=== PATIENT | male | born 1950 | race Caucasian/White ===

== ENCOUNTER 2022-07-04 19:38 | Inpatient (IN) | payer OTHER, MEDICARE ==
[~2022-07-04] VITALS: Ht 162.6 cm; Wt 95.3 kg
[2022-07-04 20:01] VITALS: BP_SYST 129
--- NOTE | 2022-07-04 20:32 | NUR ---
Pt brought by , A&Oxappropiate to age, pt presents to ER with weakness, diaphoresis,cough and congestion, skin pink and warm, cap refill <3,will cont to monitor
[2022-07-04 21:06] LABS: BASOPHILS % (AUTO) 0.3 % (0.0-2.0); EOSINOPHILS % (AUTO) 0.1 % (0.0-4.0); HEMATOCRIT 26.4 % (36-54); LYMPHOCYTES # (AUTO) 0.4 K/uL (1.0-5.5); LYMPHOCYTES % (AUTO) 2.9 % (20.5-51.5); MEAN CORPUSCULAR HEMOGLOBIN 32 pg (27-31); MEAN CORPUSCULAR HGB CONC 34 % (32-36); MEAN CORPUSCULAR VOLUME 94 fL (79.0-98.0); MONOCYTES # (AUTO) 0.7 K/uL (0.0-1.0); MONOCYTES % (AUTO) 4.6 % (1.7-9.3); NEUTROPHILS # (AUTO) 13.9 K/uL (1.8-7.7); NEUTROPHILS % (AUTO) 92.1 % (40.0-70.0); PLATELET COUNT (AUTO) 267 K/uL (130-430); RED BLOOD CELL COUNT(AUTO) 2.82 MIL/uL (4.2-6.2); WHITE BLOOD COUNT (AUTO) 15.1 K/uL (4.8-10.8)
--- NOTE | 2022-07-04 21:19 | NUR ---
Report given to Bryon VILLAR
[2022-07-04 21:35] LABS: BILIRUBIN,URINE NEGATIVE (NEGATIVE); BLOOD, URINE 1+ (NEGATIVE); CLARITY/URINE CLOUDY (CLEAR); COLOR,URINE YELLOW (YELLOW); GLUCOSE,URINE NEGATIVE (NEGATIVE); KETONES,URINE NEGATIVE (NEGATIVE); LEUKOCYTE ESTERASE ,URINE 2+ (NEGATIVE); NITRITE, URINE POSITIVE (NEGATIVE); PH,URINE 5.5 (5.0-8.0); PROTEIN URINE 1+ (NEGATIVE); UROBILINOGEN,URINE 0.2 (0.2-1.0)
[2022-07-04 21:42] LABS: ANION GAP 11 (5-15); CALCIUM 8.8 mg/dL (8.4-11.0); CHLORIDE 99 mmol/L (98-107); CREATININE 1.97 mg/dL (0.55-1.30); GLUCOSE 192 mg/dL (70-99); UREA NITROGEN, BLOOD 41 mg/dL (8-21)
[2022-07-04 21:47] LABS: ALANINE AMINOTRANSFERASE 70 U/L (12-78); ASPARTATE AMINOTRANSFERASE 43 U/L (10-37); TOTAL BILIRUBIN 0.6 mg/dL (0.0-1.0)
[2022-07-04 21:49] LABS: BACTERIA,URINE MANY /HPF (None Seen); WBC,URINE 20-50 /HPF (0-3)
[2022-07-04 21:50] LABS: COARSE GRANULAR CASTS,URINE 0-10 /LPF (None Seen); MUCUS,URINE 1+ /LPF (None Seen); URINE AMORPHOUS URATE 1+ /HPF (None Seen)
--- NOTE | 2022-07-04 22:05 | NUR ---
Placed in room 7 . Placed on monitor technician, blood pressure machine and pulse oximeter. To gown for exam. Side rails up. Report given to CHRISTOPHER VILLAR(REG).
[2022-07-04] MEDS ORDERED: AZITHROMYCIN 500 MG in NS 250 ML IV ONE (22:30)
[2022-07-04] MEDS ORDERED: NACL 0.9% 1,750 ML IV ONE (22:30)
[2022-07-04] MEDS ORDERED: PIPERACILLIN/TAZO 3.375 GM in NS 50 ML IV ONE (22:30)
[2022-07-04] MEDS ORDERED: DEXTROSE 50% JECT 50 ML DISP.SYRIN IVP ONE (22:45)
[2022-07-04] MEDS ORDERED: OSELTAMIVIR PHOSPHATE 75 MG CAPSULE PO ONE (22:45)
[2022-07-04] MEDS ORDERED: SODIUM BICARBONATE 8.4% VIAL 50 MEQ/50 ML VIAL INJ ONE (22:45)
[2022-07-04] MEDS ORDERED: INSULIN REGULAR, HUMAN 10 UNITS/0.1 ML, 3 ML VIAL IVP ONE (22:45)
[2022-07-04] MEDS ORDERED: CALCIUM GLUCONATE 1 GM/10 ML VIAL IVP ONE (22:45)
[2022-07-04] MEDS ORDERED: SODIUM POLYSTYRENE SULFONATE 15 GM/60 ML UDBTL PO ONE (22:45)
[2022-07-04] MEDS ORDERED: NACL 0.9% 2,000 ML IV ONE (22:45)
--- NOTE | 2022-07-04 23:28 | NUR ---
Admit bed requested Patient will be admitted to care of . Admitted to TELE unit. Diagnosis SEPSIS Inpatient (Yes or No) YES Observation (Yes or No) NO Orientation concerns or request close to nursing station (Yes or No) NO Covid Status PENDING On vent or bipap NO Isolation requirements NO Needs a sitter NO From Home (Yes or if No enter name of facility) YES Requires Dialysis (Yes or No) NO Med Rec Completed (Yes of No) PENDING
[2022-07-04] MEDS ORDERED: ENOXAPARIN SODIUM 30 MG/0.3 ML SYRINGE SUBCUT ONE (23:30)
[2022-07-04] MEDS ORDERED: DOCUSATE SODIUM 100 MG CAPSULE PO ONE (23:30)
[2022-07-04] MEDS ORDERED: BISACODYL 10 MG/SUPPOSITORY RC PRN (23:30)
[2022-07-04] MEDS ORDERED: BISACODYL 5 MG TABLET.DR (DULCOLAX) PO PRN (23:30)
[2022-07-04] MEDS ORDERED: DEXTROSE 50% JECT 50 ML DISP.SYRIN IVP PRN (23:45)
[2022-07-04] MEDS: NACL 0.9% 1,000 ML IV SCH (23:45)
[2022-07-04] MEDS ORDERED: cloNIDine HCL 0.1 MG TABLET PO PRN (23:45)
[2022-07-04] MEDS ORDERED: ACETAMINOPHEN 325 MG TABLET PO PRN (23:45)
[2022-07-04] MEDS ORDERED: PIPERACILLIN/TAZOBACTAM 3.375 GM/VIAL (ZOSYN) IV ONE (23:55)
[2022-07-05 01:04] LABS: INR 1.1 (0.80-1.20); PROTHROMBIN TIME 11.1 SECS (9.5-12.5)
[2022-07-05 01:05] VITALS: BP_SYST 110
[2022-07-05] MEDS ORDERED: SODIUM BICARBONATE 8.4% VIAL 50 MEQ/50 ML VIAL ONE (02:34)
[2022-07-05] MEDS ORDERED: AZITHROMYCIN 500 MG/VIAL (ZITHROMAX) IV ONE (02:36)
[2022-07-05] MEDS ORDERED: CALCIUM GLUCONATE 1 GM/10 ML VIAL ONE (02:36)
--- NOTE | 2022-07-05 05:19 | NUR ---
Received pt a/ox4 from [facility] in ER. Pt is ambulatory. Only meds given in the ER per [facility] was first dose of Zosyn and 1L IVF bolus. Remaining meds givne on the unit. Pt has been out of bed with several BMs after Kayexelate given. Pt is voiding cloudy, yellow urine per patient. Pt in the jeffery without mask on. Encouraged patient to use call light and to stay in his room, because of diagnosis of influenza.
[2022-07-05] MEDS: NACL 0.9% 1,000 ML IV SCH ×4 (06:06→18:10)
[2022-07-05 06:48] LABS: BASOPHILS % (AUTO) 0.3 % (0.0-2.0); EOSINOPHILS # (AUTO) 0.1 K/uL (0.0-0.4); EOSINOPHILS % (AUTO) 0.5 % (0.0-4.0); HEMATOCRIT 23.7 % (36-54); HEMOGLOBIN 7.9 g/dL (14.0-18.0); LYMPHOCYTES # (AUTO) 0.8 K/uL (1.0-5.5); LYMPHOCYTES % (AUTO) 6.4 % (20.5-51.5); MEAN CORPUSCULAR HEMOGLOBIN 32 pg (27-31); MEAN CORPUSCULAR HGB CONC 33 % (32-36); MEAN CORPUSCULAR VOLUME 95 fL (79.0-98.0); MONOCYTES # (AUTO) 0.9 K/uL (0.0-1.0); MONOCYTES % (AUTO) 7.1 % (1.7-9.3); NEUTROPHILS # (AUTO) 11.3 K/uL (1.8-7.7); NEUTROPHILS % (AUTO) 85.7 % (40.0-70.0); RED BLOOD CELL COUNT(AUTO) 2.49 MIL/uL (4.2-6.2); RED CELL DISTRIBUTION WIDTH 13.3 % (9.0-15.0); WHITE BLOOD COUNT (AUTO) 13.1 K/uL (4.8-10.8)
[2022-07-05 07:04] LABS: ALANINE AMINOTRANSFERASE 60 U/L (12-78); ALBUMIN 2.6 g/dL (3.4-4.8); ANION GAP 11 (5-15); ASPARTATE AMINOTRANSFERASE 34 U/L (10-37); CALCIUM 8.2 mg/dL (8.4-11.0); CHLORIDE 104 mmol/L (98-107); CHOLESTEROL 90 mg/dL (<200); CREATININE 2.13 mg/dL (0.55-1.30); GLUCOSE 161 mg/dL (70-99); HDL CHOLESTEROL 34 mg/dL (>45); LDL CHOLESTEROL 42 mg/dL (<100); PHOSPHORUS 3.4 mg/dL (2.7-4.5); TOTAL BILIRUBIN 0.5 mg/dL (0.0-1.0); TRIGLYCERIDES 104 mg/dL (30-150); UREA NITROGEN, BLOOD 41 mg/dL (8-21)
[2022-07-05 08:00] VITALS: BP_SYST 100
[2022-07-05] MEDS: DOCUSATE SODIUM 250 MG CAPSULE PO SCH ×2 (09:00→22:59)
[2022-07-05] MEDS: cefTRIAXone 1 GM in D5W 50 ML IV SCH (10:18)
[2022-07-05 11:38] VITALS: BP_SYST 114
[2022-07-05 13:46] LABS: PLATELET COUNT (AUTO) 199 K/uL (130-430)
[2022-07-05] MEDS ORDERED: TAMSULOSIN HCL 0.4 MG CAP PO ONE (14:00)
[2022-07-05 14:30] VITALS: BP_SYST 127
[2022-07-05 20:00] VITALS: BP_SYST 118
--- NOTE | 2022-07-05 20:15 | NUR ---
OPENING NOTES Patient calling nursing station needing to speak to his nurse soon after receiving report. He is sitting upright on the edge of the bed with feet dangling over. He politely stated his concern regarding not being informed of his plan of care and that he has not received any interventions during the day. He was most concerned about the three empty IV bags hanging and still attached to his arm. I pulled up his chart and explained to him that many of the medications he was taking were now discontinued. He still seemed concerned so I told him this was a good indication that he was getting better. Took vital signs and preparing evening meds. Patient is positive for Influenza A and is in [facility] ISOLATION with another patient.
--- NOTE | 2022-07-05 20:22 | NUR ---
PATIENT'S FIRST POST OP DAY SLIGHTLY ROUGH. MOST DAY HAS BEEN LETHARGIC DOWSY BUT WILL RESPOND TO TOUCH AND VOICE. AT BEDSIDE ALL DAY SON WAS HERE RN CAMP AND SPOKE WITH PRIMARY DOCTOR. PATIENT HAS [place] FOR RETENTION WITH BLOODY URINE. URINE BLOODY THIS MORNING DOCTOR HER AND SPOKE WITH SON AND TOLD BOTH SON AND RN NOT TO BE CONCERNED ABOUT URINE DUE TO PAST MEDICAL HISTORY. DENIED AND PAIN EXCEPT WITH MOVEMENT AND STILL REFUSING TO TAKE ANY PAIN MED. PATIENT STILL REAL WEAK AND SLEEPY WITH DIFFICULTY IN USING IS AND EATING DRINKING WATER AND EAT A LITTLE FOOD LAST MEAL. WAS NOT AWAKE ENOUGH THIS MORNING TO DO PT TURNING PATIENT TO KEEP FROM GETTING PNA. PLAN OF CARE CONTINUE POST OP CARE HOPEFULLY GETTING PATIENT UP OUT OF BED TOMORROW. Addendum: 07/05/22 at 2032 by Elizabet Camarena RN RN DOCUMENTATION ON WRONG PATIENT.
--- NOTE | 2022-07-05 20:34 | NUR ---
PATIENT DOING MUCH BETTER UP WALKING IN ROOM POTASSIUM CORRECTED AND NORMAL NOW. CONTINUES ON IV THERAPY FOR SEPSIS AND TREATING PATIENT FOR FLU. EATING WELL AND DRINKING WELL WITH IVF'S RUNNING AT 150/HR FOR PART OF SEPSIS TREATMENT. PLAN OF CARE PATIENT TO SEE RIGGING WORKER FOLLOW ALL LAB. CONTINUE IV ANTIBIOTIC THERAPY.
[2022-07-05] MEDS: ENOXAPARIN SODIUM 30 MG/0.3 ML SYRINGE SUBCUT SCH (22:53)
[2022-07-06] VITALS: BP_SYST 120
--- NOTE | 2022-07-06 03:38 | NUR ---
Nursing Rounds Patient sitting in nell slumped over sleeping. Woke him to to make sure he was OK. Pt denies any pain and was assisted back to bed. New bag of normal saline was started, safety measures in place.,
[2022-07-06] MEDS: NACL 0.9% 1,000 ML IV SCH ×4 (04:00→21:01)
[2022-07-06 06:42] LABS: BASOPHILS % (AUTO) 0.4 % (0.0-2.0); EOSINOPHILS # (AUTO) 0.2 K/uL (0.0-0.4); EOSINOPHILS % (AUTO) 1.6 % (0.0-4.0); HEMATOCRIT 22.4 % (36-54); HEMOGLOBIN 7.6 g/dL (14.0-18.0); LYMPHOCYTES # (AUTO) 1.5 K/uL (1.0-5.5); LYMPHOCYTES % (AUTO) 14.6 % (20.5-51.5); MEAN CORPUSCULAR HEMOGLOBIN 32 pg (27-31); MEAN CORPUSCULAR HGB CONC 34 % (32-36); MEAN CORPUSCULAR VOLUME 94 fL (79.0-98.0); MONOCYTES # (AUTO) 0.9 K/uL (0.0-1.0); MONOCYTES % (AUTO) 9.4 % (1.7-9.3); NEUTROPHILS # (AUTO) 7.3 K/uL (1.8-7.7); RED BLOOD CELL COUNT(AUTO) 2.38 MIL/uL (4.2-6.2); RED CELL DISTRIBUTION WIDTH 13.1 % (9.0-15.0); WHITE BLOOD COUNT (AUTO) 9.9 K/uL (4.8-10.8)
--- NOTE | 2022-07-06 07:00 | NUR ---
Closing Notes At the end of shift before breakfast tested blood glucose with result of 101. Patient is up and about in good spirits. Pt made a statement regarding being busy overnight and I informed him that the two times I came to check on him, he was asleep in the chair and that I assisted him back to bed. Additionally since the patient ambulates to the restroom, it has been an inconsistent task to assess and record output. When asked about his last BM, he stated he's had diarrhea since Saturday (07/04) morning; most intent between 0100 and 0500. Patient was administered Kayexalate to reduce his Potassium of 5.6 which has been resolved. Patient has a new bag of NS running at 150 and is enjoying his breakfast. Will endorse to day shift nurse.
[2022-07-06 07:14] LABS: ANION GAP 12 (5-15); CALCIUM 8.1 mg/dL (8.4-11.0); CHLORIDE 101 mmol/L (98-107); CREATININE 1.72 mg/dL (0.55-1.30); GLUCOSE 123 mg/dL (70-99); UREA NITROGEN, BLOOD 30 mg/dL (8-21)
[2022-07-06 08:00] VITALS: BP_SYST 134
[2022-07-06 09:05] LABS: PLATELET COUNT (AUTO) 212 K/uL (130-430)
[2022-07-06] MEDS: TAMSULOSIN HCL 0.4 MG CAP PO SCH (10:15)
[2022-07-06] MEDS: DOCUSATE SODIUM 250 MG CAPSULE PO SCH ×3 (10:15→21:00)
[2022-07-06] MEDS: cefTRIAXone 1 GM in D5W 50 ML IV SCH (10:26)
[2022-07-06 11:40] VITALS: BP_SYST 112
[2022-07-06] MEDS ORDERED: OXCA600T5 PO (15:16)
[2022-07-06] MEDS ORDERED: SERT100T PO (15:16)
[2022-07-06] MEDS ORDERED: ALFU10TA10 PO (15:22)
[2022-07-06] MEDS ORDERED: DONE5TAB33 PO (15:22)
[2022-07-06] MEDS ORDERED: OLAN5TAB71 PO (15:22)
[2022-07-06] MEDS ORDERED: IRBE300T40 PO (15:22)
[2022-07-06] MEDS ORDERED: ROSU20TA2 PO (15:22)
[2022-07-06] MEDS ORDERED: ARIP10TA9 PO (15:22)
--- NOTE | 2022-07-06 15:23 | NUR ---
Dietitian Recommendations *Continue Consistent CHO, Cardiac diet per MD *Consider banatrol if diarrhea persists *Consider Nepro once daily in chocolate flavor per pt request GS, RD Please refer to RD Assessment for further details Addendum: 07/06/22 at [address] Amended: Links added.
[2022-07-06] MEDS ORDERED: NON-FORMULARY MEDICATION (Alfuzosin Hcl 10 MG) PO SCH (15:30)
[2022-07-06 15:55] VITALS: BP_SYST 121
[2022-07-06] MEDS: INSULIN REGULAR, HUMAN 100 UNITS/ML, 3 ML VIAL (humuLIN R) SUBCUT PRN (17:28)
[2022-07-06] MEDS: OXcarbazepine 150 MG TABLET(TRILEPTAL) PO SCH (20:00)
[2022-07-06] MEDS: ENOXAPARIN SODIUM 30 MG/0.3 ML SYRINGE SUBCUT SCH (20:00)
[2022-07-06] MEDS ORDERED: OLANZapine 5 MG TABLET PO SCH (21:00)
[2022-07-06] MEDS ORDERED: SERTRALINE HCL 50 MG TABLET PO SCH (21:00)
[2022-07-06 21:05] VITALS: BP_SYST 126
[2022-07-07] MEDS: NACL 0.9% 1,000 ML IV SCH (04:17)
--- NOTE | 2022-07-07 06:56 | NUR ---
rn notes patient remains on room air, no sob noted, no pain, VSS. Tried putting a new IV line due to the old IV line not working. Tried multiple times and patient stated that we can try again later. BS check, normal.
[2022-07-07 08:00] VITALS: BP_SYST 120
--- NOTE | 2022-07-07 08:00 | NUR ---
AM ASSESSMENT PT IN BED, VITAL SIGNS TAKEN, NO COMPLAINTS OF PAIN, UNWRAPPED IV IN LEFT A/C, CATHETER KINKED. PT STATED "I'M NOT STAYING FOR ANOTHER NIGHT HERE, LET ME JUST WAIT FOR THE DOCTOR TO DISCHARGE ME, I DON'T WANT ANOTHER IV.
[2022-07-07] MEDS: TAMSULOSIN HCL 0.4 MG CAP PO SCH (08:24)
[2022-07-07] MEDS: DOCUSATE SODIUM 250 MG CAPSULE PO SCH (08:24)
[2022-07-07] MEDS ORDERED: ARIPiprazole 5 MG TAB PO SCH (09:00)
[2022-07-07] MEDS ORDERED: ATORVASTATIN 20 MG TABLET PO SCH (09:00)
[2022-07-07] MEDS ORDERED: DONEPEZIL HCL 5 MG TABLET (ARICEPT) PO SCH (09:00)
[2022-07-07] MEDS ORDERED: LOSARTAN POTASSIUM 50 MG TABLET (COZAAR) PO SCH (09:00)
[2022-07-07 11:21] VITALS: BP_SYST 126
[2022-07-07] MEDS: OXcarbazepine 150 MG TABLET(TRILEPTAL) PO SCH (11:24)
[2022-07-07] MEDS: INSULIN REGULAR, HUMAN 100 UNITS/ML, 3 ML VIAL (humuLIN R) SUBCUT PRN (12:36)
--- NOTE | 2022-07-07 14:20 | NUR ---
MD DR HERNANDEZ IN THE PT'S ROOM. DISCHARGE HOME ORDERS RECEIVED.
[2022-07-07] MEDS ORDERED: TAMS0.4C96 PO (14:35)
[2022-07-07] MEDS ORDERED: LACT1TAB14 PO (14:35)
[2022-07-07] MEDS ORDERED: CIPROFLOXACIN HCL 500 MG TABLET PO ONE (14:45)
[2022-07-07 15:27] VITALS: BP_SYST 135
--- NOTE | 2022-07-07 16:05 | NUR ---
DISCHARGE PT'S ARMINDA HERE TO DRIVE PT HOME. PRESCRIPTION FOR CIPRO HANDED TO THE PATIENT. INSTRUCTIONS GIVEN, WHEELED PT OUT, STABLE CONDITION.
[2022-07-07] MEDS ORDERED: CIPROFLOXACIN HCL 500 MG TABLET PO SCH (22:00)
== END 2022-07-07 16:05 | disposition home or self-care (01) | DRG 871 ==
LOC: SED 19:38 → STU 22:35 → SMU 07-07 01:04
PROVIDERS: ADMIT Internal Medicine; ATTEND Internal Medicine
DX: A41.9 Sepsis, unspecified organism (principal); N17.0 Acute kidney failure with tubular necrosis; N39.0 Urinary tract infection, site not specified; E87.1 Hypo-osmolality and hyponatremia; E44.1 Mild protein-calorie malnutrition; F03.90 Unspecified dementia, unspecified severity, without behavioral disturbance, psychotic disturbance, mood disturbance, and anxiety; E87.5 Hyperkalemia; E66.9 Obesity, unspecified; F31.9 Bipolar disorder, unspecified; Z20.822 Contact with and (suspected) exposure to COVID-19; I10 Essential (primary) hypertension; E11.9 Type 2 diabetes mellitus without complications; Z83.3 Family history of diabetes mellitus; Z82.49 Family history of ischemic heart disease and other diseases of the circulatory system; Z68.36 Body mass index [BMI] 36.0-36.9, adult
CPT/HCPCS: 36415; 71045; 76770; 80048; 80053; 80061; 81000; 82962; 83036; 83605; 84100; 84484; 85025; 85610-TC; 85730-TC; 87040; 87086; 93005; 96365; 99291; G0378; J0456; J0610; J0696; J1650; J1815; J1956; J2543; J7030; J7050; J7060